=== PATIENT | female | born 1965 | race Caucasian/White ===

== ENCOUNTER 2016-07-08 10:44 | Emergency (ER) | payer BC ==
[2016-07-08] MEDS ORDERED: methylPREDNISolone SOD SUCC 125 MG/2 ML VIAL IVP ONE (10:54)
[2016-07-08] MEDS ORDERED: NS 1,000 ML IV ONE (10:54)
[2016-07-08] MEDS ORDERED: FAMOTIDINE 20 MG TAB PO ONE (10:54)
[2016-07-08] MEDS ORDERED: IPRATROPIUM/ALBUTEROL 3 ML DEYVIAL IH ONE (10:54)
[2016-07-08 11:01] VITALS: RESP 20
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
[2016-07-08 12:32] VITALS: BP 151/89; PULSE 104; TEMP 98.4; O2SAT 96
== END 2016-07-08 12:00 | disposition home or self-care (01) ==
LOC: CED 10:44
DX: T78.40XA Allergy, unspecified, initial encounter (principal)
CPT/HCPCS: 96361-PO; 96374-PO; 99214-PO; G0463-PO

== ENCOUNTER 2018-04-26 16:43 | Emergency (ER) | payer BC, OTHER ==
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
[2018-04-26 18:34] VITALS: BP 164/88
== END 2018-04-26 18:31 | disposition home or self-care (01) ==
LOC: CED 16:43
DX: S16.1XXA Strain of muscle, fascia and tendon at neck level, initial encounter (principal); V89.2XXA Person injured in unspecified motor-vehicle accident, traffic, initial encounter; Y92.410 Unspecified street and highway as the place of occurrence of the external cause; Y93.9 Activity, unspecified; Y99.9 Unspecified external cause status
CPT/HCPCS: 76536-PO